=== PATIENT | male | born 1955 | race Caucasian/White ===

== ENCOUNTER 2018-03-21 05:52 | Emergency (ER) | payer OTHER ==
--- NOTE | 2018-03-21 06:26 | C.PDOC ---
History Of Present Illness 62 year old male presents to the ER with a complaint of right sided neck pain for the past 2-3 days. Denies weakness, numbness, or injury. Chief Complaint (Nursing): ENT Problem History Per: Patient History/Exam Limitations: no limitations Onset/Duration Of Symptoms: Days Current Symptoms Are (Timing): Still Present Recent travel outside of the [place]: No Past Medical History Reviewed: Historical Data, Nursing Documentation, Vital Signs Vital Signs: Last Vital Signs Temp 98.1 F 03/21/18 05:58 Pulse 72 03/21/18 05:58 Resp 16 03/21/18 05:58 BP 201/101 H 03/21/18 05:58 Pulse Ox 100 03/21/18 06:29 Family History: States: Unknown Family Hx - Social History Hx Tobacco Use: No Hx Alcohol Use: Yes Hx Substance Use: No - Immunization History Hx Tetanus Toxoid Vaccination: No Hx Influenza Vaccination: Yes Hx Pneumococcal Vaccination: No Review Of Systems Constitutional: Negative for: Fever, Chills Cardiovascular: Negative for: Chest Pain, Palpitations Respiratory: Negative for: Cough, Shortness of Breath Gastrointestinal: Negative for: Nausea, Vomiting Musculoskeletal: Positive for: Neck Pain Neurological: Negative for: Weakness, Numbness Physical Exam - Physical Exam Appears: Non-toxic Skin: Normal Color, Warm, Dry Head: Atraumatic, Normacephalic Eye(s): bilateral: Normal Inspection Oral Mucosa: Moist Neck: Decreased ROM (due to pain), No Midline Cervical Tenderness, Paracervical Tenderness (right lateral) Chest: Symmetrical, No Tenderness Cardiovascular: Rhythm Regular Respiratory: Normal Breath Sounds, No Rales, No Rhonchi, No Wheezing Gastrointestinal/Abdominal: Soft, No Tenderness Back: No Vertebral Tenderness, No Paraspinal Tenderness Extremity: Normal ROM (x4) Neurological/Psych: Oriented x3, Normal Speech ED Course And Treatment O2 Sat by Pulse Oximetry: 100 (Room air) Pulse Ox Interpretation: Normal Progress Note: Toradol and flexeril administered. Disposition Counseled Patient/Family Regarding: Diagnosis - Disposition Referrals: [facility] [Outside] Disposition: HOME/ ROUTINE Disposition Time: 06:29 Condition: STABLE Prescriptions: Cyclobenzaprine [Cyclobenzaprine HCl] 10 mg PO TID #20 tab Naproxen 375 mg PO TIDPC #20 tablet Instructions: Torticollis (DC), Cervical Immobilizers Forms: [facility] (Armenian) Print Language: INDONESIAN - POA Present On Arrival: None - Clinical Impression Clinical Impression: Nikky - Yanciibzoë Statement The provider has reviewed the documentation as recorded by the Scribzoë Paz All medical record entries made by the Scribe were at my direction and personally dictated by me. I have reviewed the chart and agree that the record accurately reflects my personal performance of the history, physical exam, medical decision making, and the department course for this patient. I have also personally directed, reviewed, and agree with the discharge instructions and disposition.
[2018-03-21 06:44] VITALS: BP 172/90; PULSE 60; RESP 12; TEMP 98.6; O2SAT 96
== END 2018-03-21 06:44 | disposition home or self-care (01) ==
LOC: C.ER 05:52
DX: M43.6 Torticollis (principal)
CPT/HCPCS: 96372; 99283; J1885